=== PATIENT | female | born 1965 | race Caucasian/White ===

== ENCOUNTER → 2018-10-03 13:04 | Outpatient (CLI) | payer BC, SELFPAY ==
[2018-10-03 14:30] LABS: Basophils % 0.7 % (0.1-2.0); Eosinophils # 0.1 K/mm3 (0.0-0.4); Hematocrit 49.1 % (37.0-47.0); Hemoglobin 16.2 g/dL (12.2-16.2); Lymphocytes # 1.4 K/mm3 (0.7-4.5); Lymphocytes % 24.5 % (10-50); Mean Corpuscular Hemoglobin 30.8 pg (27.0-31.2); Mean Corpuscular Volume 93.2 fl (81-99); Mean Platelet Volume 8.1 fl (7.4-10.4); Monocytes # 0.4 K/mm3 (0.1-1.0); Monocytes % 7.1 % (1.7-9.3); Neutrophils # 3.8 K/mm3 (1.8-7.8); Neutrophils % 65.7 % (37.0-80.0); Platelet Count 223 K/mm3 (142-424); Red Blood Count 5.26 M/mm3 (4.20-5.40); White Blood Count 5.8 K/mm3 (4.8-10.8)
[2018-10-03 16:21] LABS: Alanine Aminotransferase 135 U/L (12-78); Albumin Level 3.7 gm/dL (3.4-5.0); Albumin/Globulin Ratio 1.2 (1.1-1.8); Alkaline Phosphatase 94 U/L (46-116); Anion Gap 15.6 mEq/L (5-15); Aspartate Amino Transferase 60 U/L (15-37); Bilirubin,Total 0.5 mg/dL (0.2-1.0); Blood Urea Nitrogen 14 mg/dL (7-18); Calcium 8.7 mg/dL (8.5-10.1); Carbon Dioxide 27 mmol/L (21.0-32.0); Chloride 99 mmol/L (98-107); Cholesterol 333 mg/dL (140-200); Creatinine,Serum 1.01 mg/dL (0.55-1.02); Estimated Glomerular Filt Rate 57 ml/min (>60); Free T4 (Free Thyroxine) 0.99 ng/dl (0.76-1.46); GFR (African American) 69 ML/MIN (>60); Globulin 3.2 gm/dl (1.3-3.2); Glucose 394 mg/dL (74-106); HDL Cholesterol 37 mg/dL (29-89); Potassium 4.6 mmoL/L (3.5-5.1); Sodium 137 mmol/L (136-145); Thyroid Stimulating Hormone 1.85 uIU/ml (0.358-3.740); Total Protein,Serum 6.9 gm/dL (6.4-8.2)
[2018-10-03 16:40] LABS: Triglycerides 485 mg/dL (30-200)
[2018-10-04 20:50] LABS: Vitamin B12 443 pg/mL (232-1245)
[2018-10-04 20:51] LABS: Microalbumin, Urine 150.4 ug/mL (Not Estab.)
== END ==
PROVIDERS: Visit Provider Emergency Medicine
DX: E11.9 Type 2 diabetes mellitus without complications (principal); Z79.84 Long term (current) use of oral hypoglycemic drugs; E55.9 Vitamin D deficiency, unspecified
CPT/HCPCS: 80053; 80061; 82043; 82607; 82652; 83036; 84439; 84443; 85025

== ENCOUNTER → 2018-11-25 15:31 | Outpatient (POV) | payer BC, SELFPAY ==
[2018-11-27 07:17] LABS: Hep A Ab, IgM Negative (Negative); Hepatitis B Core Antibody IgM Negative (Negative); Hepatitis B Surface Antigen Negative (Negative)
[2018-11-27 13:19] LABS: Hepatitis C Antibody <0.1 s/co ratio (0.0-0.9)
[2018-11-28 17:09] LABS: QuantiFERON-TB Gold Plus Negative (Negative)
== END ==
PROVIDERS: Visit Provider Dermatology
DX: L40.0 Psoriasis vulgaris (principal); Z79.899 Other long term (current) drug therapy
CPT/HCPCS: 36415; 80074; 86480

== ENCOUNTER → 2019-02-11 14:15 | Outpatient (CLI) | payer BC, SELFPAY ==
[2019-02-11 14:53] LABS: Basophils # 0.1 K/mm3 (0-0.2); Eosinophils # 0.2 K/mm3 (0.0-0.4); Eosinophils % 2.3 % (0.1-12.0); Hematocrit 57.4 % (37.0-47.0); Hemoglobin 17.7 g/dL (12.2-16.2); Lymphocytes # 2.1 K/mm3 (0.7-4.5); Lymphocytes % 29.9 % (10-50); Mean Corpuscular HGB Conc 30.8 g/dL (31.8-35.4); Mean Corpuscular Volume 97.3 fl (81-99); Mean Platelet Volume 8.7 fl (7.4-10.4); Monocytes # 0.5 K/mm3 (0.1-1.0); Monocytes % 7.3 % (1.7-9.3); Neutrophils # 4.2 K/mm3 (1.8-7.8); Neutrophils % 59.6 % (37.0-80.0); Platelet Count 264 K/mm3 (142-424); Red Cell Distribution Width 13.9 % (11.5-17.5)
[2019-02-11 15:08] LABS: Alanine Aminotransferase 92 U/L (12-78); Albumin Level 3.7 gm/dL (3.4-5.0); Alkaline Phosphatase 84 U/L (46-116); Anion Gap 15.6 mEq/L (5-15); Bilirubin,Total 0.6 mg/dL (0.2-1.0); Blood Urea Nitrogen 12 mg/dL (7-18); Calcium 9.2 mg/dL (8.5-10.1); Carbon Dioxide 27 mmol/L (21.0-32.0); Chloride 100 mmol/L (98-107); Chol/HDL Ratio 7.4 (1-3.5); Cholesterol 295 mg/dL (140-200); Creatinine,Serum 0.71 mg/dL (0.55-1.02); Estimated Glomerular Filt Rate 86 ml/min (>60); GFR (African American) 104 ML/MIN (>60); Globulin 3.7 gm/dl (1.3-3.2); Glucose 149 mg/dL (74-106); HDL Cholesterol 40 mg/dL (29-89); LDL Cholesterol 194 mg/dL (0-130); Sodium 138 mmol/L (136-145); Total Protein,Serum 7.4 gm/dL (6.4-8.2); Triglycerides 305 mg/dL (30-200); VLDL Cholesterol 61 mg/dL (0-40)
[2019-02-11 15:11] LABS: Potassium 4.6 mmoL/L (3.5-5.1)
[2019-02-11 15:12] LABS: Aspartate Amino Transferase 73 U/L (15-37)
[2019-02-11 16:34] LABS: Hemoglobin A1C 7.4 % (0.0-7.0)
== END ==
PROVIDERS: Visit Provider Emergency Medicine
DX: E11.9 Type 2 diabetes mellitus without complications (principal)
CPT/HCPCS: 80053; 80061; 83036; 85025

== ENCOUNTER → 2020-07-18 17:32 | Outpatient (CLI) | payer BC, SELFPAY ==
[2020-07-18 18:05] LABS: Basophils # 0.1 K/mm3 (0-0.2); Basophils % 0.9 % (0.1-2.0); Eosinophils # 0.2 K/mm3 (0.0-0.4); Hematocrit 55.8 % (37.0-47.0); Lymphocytes # 2.7 K/mm3 (0.7-4.5); Mean Corpuscular HGB Conc 33.1 g/dL (31.8-35.4); Mean Corpuscular Hemoglobin 30.9 pg (27.0-31.2); Mean Corpuscular Volume 93.4 fl (81-99); Mean Platelet Volume 8.3 fl (7.4-10.4); Monocytes # 0.5 K/mm3 (0.1-1.0); Monocytes % 6.3 % (1.7-9.3); Neutrophils # 4.1 K/mm3 (1.8-7.8); Neutrophils % 53.8 % (37.0-80.0); Platelet Count 255 K/mm3 (142-424); Red Blood Count 5.97 M/mm3 (4.20-5.40); Red Cell Distribution Width 13.4 % (11.5-17.5); White Blood Count 7.6 K/mm3 (4.8-10.8)
[2020-07-18 18:10] LABS: Hemoglobin 18.6 g/dL (12.2-16.2)
[2020-07-18 18:53] LABS: Alanine Aminotransferase 54 U/L (12-78); Albumin Level 4.6 g/dl (3.5-5.0); Albumin/Globulin Ratio 1.5 (1.1-1.8); Alkaline Phosphatase 85 U/L (38-126); Anion Gap 14.6 mEq/L (5-15); Aspartate Amino Transferase 44 U/L (14-36); Bilirubin,Total 0.7 mg/dl (0.2-1.3); Blood Urea Nitrogen 9 mg/dl (7-17); Carbon Dioxide 26 mmol/L (22.0-30.0); Chloride 102 mmol/L (98-107); Estimated Glomerular Filt Rate 87 ml/min (>60); GFR (African American) 105 ML/MIN (>60); Glucose 156 mg/dl (74-100); HDL Cholesterol 49 mg/dl (40-60); Potassium 4.6 mmoL/L (3.5-5.1); Sodium 138 mmol/L (136-145); Total Protein,Serum 7.6 g/dl (6.3-8.2)
[2020-07-18 19:08] LABS: Free T4 (Free Thyroxine) 1.15 ng/dl (0.78-2.19)
[2020-07-18 19:11] LABS: Direct LDL Cholesterol 238.43 mg/dL (100-129)
[2020-07-18 19:23] LABS: 25-OH Vitamin D, Total < 12.8 ng/mL (30-100); Thyroid Stimulating Hormone 2.51 uIU/mL (0.465-4.68); Triglycerides 437 mg/dl (30-150)
[2020-07-18 19:24] LABS: Cholesterol 345 mg/dl (140-200); Hemoglobin A1C 8.9 % (4.0-6.0)
== END ==
PROVIDERS: Visit Provider Emergency Medicine
DX: E11.9 Type 2 diabetes mellitus without complications (principal); E55.9 Vitamin D deficiency, unspecified; Z79.84 Long term (current) use of oral hypoglycemic drugs
CPT/HCPCS: 80053; 80061; 82306; 83036; 84439; 84443; 85025

== ENCOUNTER → 2022-03-13 13:42 | Outpatient (CLI) | payer BC, SELFPAY ==
[2022-03-13 20:08] LABS: Basophils # 0.1 K/mm3 (0-0.2); Basophils % 1.1 % (0.1-2.0); Eosinophils # 0.2 K/mm3 (0.0-0.4); Eosinophils % 2.3 % (0.1-12.0); Hematocrit 49.5 % (37.0-47.0); Hemoglobin 16.3 g/dL (12.2-16.2); Lymphocytes # 2.6 K/mm3 (0.7-4.5); Lymphocytes % 34.8 % (10-50); Mean Corpuscular HGB Conc 32.9 g/dL (31.8-35.4); Mean Corpuscular Hemoglobin 31.3 pg (27.0-31.2); Mean Corpuscular Volume 95.1 fl (81-99); Mean Platelet Volume 8.5 fl (7.4-10.4); Monocytes # 0.5 K/mm3 (0.1-1.0); Monocytes % 6.5 % (1.7-9.3); Neutrophils # 4.1 K/mm3 (1.8-7.8); Neutrophils % 55.3 % (37.0-80.0); Platelet Count 324 K/mm3 (142-424); Red Blood Count 5.21 M/mm3 (4.20-5.40); Red Cell Distribution Width 13.6 % (11.5-17.5); White Blood Count 7.4 K/mm3 (4.8-10.8)
[2022-03-13 20:14] LABS: Chloride 103 mmol/L (98-107); Potassium 4.3 mmoL/L (3.5-5.1); Sodium 140 mmol/L (136-145)
[2022-03-13 20:17] LABS: Alanine Aminotransferase 38 U/L (12-78); Albumin/Globulin Ratio 1.6 (1.1-1.8); Alkaline Phosphatase 97 U/L (38-126); Anion Gap 15.3 mEq/L (5-15); Aspartate Amino Transferase 34 U/L (14-36); Bilirubin,Total 0.4 mg/dl (0.2-1.3); Blood Urea Nitrogen 12 mg/dl (7-17); Carbon Dioxide 26 mmol/L (22.0-30.0); Cholesterol 288 mg/dl (140-200); Estimated Glomerular Filt Rate 64 ml/min (>60); GFR (African American) 78 ML/MIN (>60); Globulin 2.5 g/dL (1.3-3.2); Total Protein,Serum 6.5 g/dl (6.3-8.2)
[2022-03-13 20:18] LABS: Calcium 9.3 mg/dl (8.4-10.2); Chol/HDL Ratio 7.8 (1-3.5); Glucose 214 mg/dl (74-100); HDL Cholesterol 37 mg/dl (40-60)
[2022-03-13 20:20] LABS: Erythrocyte Sedimentation Rate 29 mm/hr (0-30)
[2022-03-13 20:26] LABS: C-Reactive Protein 11.3 mg/L (0-4)
[2022-03-13 20:31] LABS: Direct LDL Cholesterol 157.35 mg/dL (100-129)
[2022-03-13 20:33] LABS: Triglycerides 813 mg/dl (30-150)
[2022-03-13 20:35] LABS: Free T4 (Free Thyroxine) 1.03 ng/dl (0.78-2.19)
[2022-03-13 20:47] LABS: Hemoglobin A1C 7.7 % (4.0-6.0)
[2022-03-13 20:52] LABS: Thyroid Stimulating Hormone 1.74 uIU/mL (0.465-4.68)
== END ==
PROVIDERS: PCP Emergency Medicine; Visit Provider Emergency Medicine
DX: M54.50 Low back pain, unspecified (principal); E11.9 Type 2 diabetes mellitus without complications; L40.9 Psoriasis, unspecified; E66.9 Obesity, unspecified; Z68.31 Body mass index [BMI] 31.0-31.9, adult; Z72.0 Tobacco use; Z79.84 Long term (current) use of oral hypoglycemic drugs
CPT/HCPCS: 80053; 80061; 83036; 84439; 84443; 85025; 85651; 86140

== ENCOUNTER → 2022-08-15 09:55 | Outpatient (CLI) | payer BC, SELFPAY ==
--- NOTE | 2022-08-15 09:55 | FL_ITS ---
FINAL REPORT CLINICAL HISTORY: abd pain, feels like stuff is going down the wrong way FINDINGS: ESOPHAGRAM HISTORY: Dysphagia. Epigastric pain. Fluoroscopy time: 2 minutes 12 seconds. 14 radiographs were obtained. PROCEDURE: The patient ingested barium. Effervescent crystals were also administered. Spot and overhead films were obtained. FINDINGS: The esophagus is normal. There is no hiatal hernia. There is no gastroesophageal reflux. Peristalsis is normal. A 13 mm barium tablet passes through the esophagus and into the stomach without delay. No aspiration was demonstrated during the exam. IMPRESSION: Normal esophagram. Films reviewed , interpreted and dictated by Dr. Dela Cruz. Transcribed by Bartolome Fernández PA-C. Reviewed, Interpreted and Dictated by Guerrero Dela Cruz III, MD Transcribed by JACQUIE Lynn Authenticated and [facility]
== END ==
PROVIDERS: PCP Emergency Medicine; Visit Provider Emergency Medicine
DX: R10.9 Unspecified abdominal pain (principal)
CPT/HCPCS: 74220

== ENCOUNTER 2023-12-26 15:00 | Outpatient (CLI) | payer BC, SELFPAY ==
[2023-12-26 17:04] LABS: Hemoglobin A1C 6.4 % (4.0-6.0)
[2023-12-26 18:12] LABS: Basophils # 0.1 K/mm3 (0-0.2); Basophils % 0.9 % (0.1-2.0); Eosinophils # 0.2 K/mm3 (0.0-0.4); Eosinophils % 2.3 % (0.1-12.0); Hematocrit 49.6 % (37.0-47.0); Hemoglobin 16.4 g/dL (12.2-16.2); Lymphocytes # 2.2 K/mm3 (0.7-4.5); Lymphocytes % 30.1 % (10-50); Mean Corpuscular Hemoglobin 32.2 pg (27.0-31.2); Mean Corpuscular Volume 97.6 fl (81-99); Mean Platelet Volume 7.8 fl (7.4-10.4); Monocytes # 0.5 K/mm3 (0.1-1.0); Neutrophils # 4.4 K/mm3 (1.8-7.8); Neutrophils % 59.8 % (37.0-80.0); Platelet Count 247 K/mm3 (142-424); Red Blood Count 5.08 M/mm3 (4.20-5.40); Red Cell Distribution Width 13.7 % (11.5-17.5); White Blood Count 7.3 K/mm3 (4.8-10.8)
[2023-12-26 18:37] LABS: Anion Gap 10.1 mEq/L (5-15); Blood Urea Nitrogen 11 mg/dl (7-17); Calcium 9.5 mg/dl (8.4-10.2); Carbon Dioxide 26 mmol/L (22.0-30.0); Chloride 106 mmol/L (98-107); Estimated Glomerular Filt Rate 86 ml/min (>60); GFR (African American) 104 ML/MIN (>60); Glucose 184 mg/dl (74-100); Potassium 4.1 mmoL/L (3.5-5.1); Sodium 138 mmol/L (136-145)
[2023-12-26 18:38] LABS: Alanine Aminotransferase 46 U/L (12-78); Albumin Level 4.1 g/dl (3.5-5.0); Albumin/Globulin Ratio 1.4 (1.1-1.8); Aspartate Amino Transferase 34 U/L (14-36); Bilirubin,Total 0.5 mg/dl (0.2-1.3); Cholesterol 305 mg/dl (140-200); Direct LDL Cholesterol 167.56 mg/dL (100-129); Total Protein,Serum 7.1 g/dl (6.3-8.2); Triglycerides 819 mg/dl (30-150)
[2023-12-26 18:39] LABS: Alkaline Phosphatase 66 U/L (38-126); Chol/HDL Ratio 7.1 (1-3.5); HDL Cholesterol 43 mg/dl (40-60); Thyroid Stimulating Hormone 1.92 uIU/mL (0.465-4.68)
[2024-01-07 04:10] LABS: 1,25 Dihydroxy Vitamin D 43 pg/mL (.); 1,25-Dihydroxy, Vitamin D-2 33 pg/mL (.); 1,25-Dihydroxy, Vitamin D-3 <10 pg/mL (.)
== END 2023-12-26 23:59 | disposition home or self-care (01) ==
LOC: LAB.DROPOF 01-03 13:26
PROVIDERS: PCP Family Medicine; Visit Provider Family Medicine
DX: E11.9 Type 2 diabetes mellitus without complications (principal); E66.3 Overweight; F41.9 Anxiety disorder, unspecified; E55.9 Vitamin D deficiency, unspecified; I25.10 Atherosclerotic heart disease of native coronary artery without angina pectoris
CPT/HCPCS: 80050; 80053; 80061; 82652; 83036; 84443; 85025

== ENCOUNTER 2025-04-16 13:23 | Outpatient (CLI) | payer BC, SELFPAY ==
--- OUTSIDE RECORDS SUMMARY | 2025-04-16 13:26 | XMS_ITS | Clinical Summary ---
Author Organization [facility] Address [address] [place] [address] Care Team Providers Care Stamp Redemption Clerk Name Role Phone Josh Hodge Hugh Primary Care Provider + Allergies Active Allergy Reactions Criticality Noted Date Comments Egg Protein-Containing Drug Products Nausea And Vomiting 08/23/2020 Sitagliptin Angioedema 06/10/2023 Lisinopril Cough 06/10/2023 Medications Jardiance 25 MG tablet Take 1 tablet by mouth Daily. 1 Active Cholecalciferol 25 MCG (1000 UT) tablet Take 1 tablet by mouth Daily. Active Semaglutide,0.2 5 or 0.5MG/DOS, (Ozempic, 0.25 or 0.5 MG/DOSE,) 2 MG/1.5ML solution pen-injector Inject under the skin into the appropriate area as directed 1 (One) Time Per Week. Unknown dose; gets it through clinic Active aspirin 81 MG EC tablet Take 1 tablet by mouth Daily. 90 tablet 3 4 Active atorvastatin (LIPITOR) 80 MG tablet Take 1 tablet by mouth Every Night. 90 tablet 3 09/08/2023 3:19 PM EDT 4 Active vitamin D (ERGOCALCIFEROL ) 1.25 MG (28454 UT) capsule capsule Take 1 capsule by mouth Every 7 (Seven) Days. 4 Active carvedilol (COREG) 3.125 MG tablet Take 1 tablet by mouth 2 (Two) Times a Day With Meals. 180 tablet 3 02/07/2025 4:24 PM EDT 5 Active losartan (COZAAR) 25 MG tablet Take 1 tablet by mouth Daily. 90 tablet 3 02/07/2025 4:24 PM EDT 5 Active nitroglycerin (NITROSTAT) 0.[address] 1 tablet under the tongue every 5 minutes As Needed for Chest Pain (Systolic BP>100). Take no more than 3 doses in 15 minutes. 25 tablet 12 02/07/2025 4:24 PM EDT 5 Active ticagrelor (Brilinta) 90 MG tablet tablet Take 1 tablet by mouth 2 (Two) Times a Day. 180 tablet 2 02/07/2025 4:24 PM EDT 5 Active Active Problems Problem Noted Date Diagnosed Date STEMI (ST elevation myocardial infarction) 06/10 Type 2 diabetes mellitus 06/10/2023 Simple chronic bronchitis 06/10/2023 Erythrocytosis 08/23/2020 Encounters Date Type Department Care Team Description 01/28/2025 Refill [facility] [address] [place] [address] [address] [place] [address] Louis Hopkins MD Med Refill from Last 3 Months Family History Medical History Relation Name Comments Hypertension Father Dad Breast cancer Maternal Grandmother Lung cancer Maternal Uncle No Known Problems Mother Heart attack Sister Fernanda Relation Name Status Comments Father Dad Maternal Grandmother Maternal Uncle Mother Sister Fernanda Social History Tobacco Use Types Packs/Day Years Used Date Smoking Tobacco: Every Day Cigarettes 1 50 Started: 04/29/1975 Passive Smoke Exposure: Current Tobacco Cessation:Ready to Q uit: Not Asked; Counseling Given: Not Answered Alcohol Use Standard Drinks/Week Comments Never 0 (1 standard drink = 0.6 oz pur e alcohol) AUDIT-C Answer Date Recorded Q1: How often do you have a drink containing alcohol? Never 06/10/2023 Q2: How many drinks containi ng alcohol do you have on a typical day when you are drinking? Patient does not drink Q3: How often do you have si x or more drinks on one occasion? Never 06/10/2023 PHQ-2 Answer Date Recorded Retired Total Score 0 08/23/2020 Abuse Screen Answer Date Recorded Feels Unsafe at Home or Work/School no 06/10/2023 Feels Threatened by Someone no 05/30 Does Anyone Try to Keep You From Having Contact with Others or Doing Things Outside Your Home? no 06/10/2023 Physical Signs of Abuse Present no 06/10/2023 Housing Stability Answer Date Recorded Current Living Arrangements home 05/30 Potentially Unsafe Housing Conditions none 06/11/2023 Disabilities Answer Date Recorded Difficulty Concentrating, Remembering or Making Decisions no 06/10/2023 Difficulty Managing Errands Independently no 06/10/2023 Education Answer Date Recorded Help with school or training? Not on file Preferred Language Ethiopian 06/11/2023 Comments Unknown Sex and Gender Information Value Date Recorded Sex Assigned at Not on file Legal Sex Female 1:20 PM EDT Gender Identity Not on file Sexual Orientation Not on file Last Filed Vital Signs Vital Sign Reading Time Taken Comments Blood Pressure 120/70 04/16/2024 3:20 PM EST Pulse 55 04/16/2024 3:20 PM EST Temperature 36.8 C (98.3 F) 06/12/2023 7:58 AM EST Respiratory Rate 16 06/12/2023 10:00 AM EST Oxygen Saturation 92% 04/16/2024 3:20 PM EST Inhaled Oxygen Concentration - - Weight 74.5 kg (164 lb 3.2 oz) 04/16/2024 3:20 P M EST Height 162.6 cm (5' 4.02 ) 04/16/2024 3:20 PM ES T Body Mass Index 28.17 04/16/2024 3:20 PM EST Plan of Treatment Upcoming Encounters Date Type Department Care Team (Late st Contact Info) Description 05/06/2025 3:45 PM EST Office Visit [facility] [address] [place] [address] [address] [place] [address] Louis Hopkins MD [address] [place] [address] Health Maintenance Due Date Last Done Comments Annual Gynecologic Pelvic and Breast Exam 1964 DIABETIC EYE EXAM 1974 DIABETIC FOOT EXAM 1974 URINE MICROALBUMIN-CREATININE RATIO (uACR) 1974 Pneumococcal Vaccine 50+ (1 of 2 - PCV) 1983 TDAP/TD VACCINES (1 - Tdap) 1983 PAP SMEAR 1985 MAMMOGRAM 2004 COLOGUARD 2009 COLON CANCER SCREENING 5 YEAR SIGMOIDOSCOPY 2009 COLONOSCOPY [address] CANCER SCREENING 2009 [address] COLONOGRAPHY 2009 FECAL OCCULT BLOOD TEST 2009 FIT Testing (1 year) 2009 LUNG CANCER SCREENING 2014 ZOSTER VACCINE (1 of 2) 2014 ANNUAL PHYSICAL 08/23/2020 HEPATITIS C SCREENING 08/23/2020 HEMOGLOBIN A1C 12/09/2023 06/10/2023 LIPID PANEL 06/10/2024 06/10/2023 INFLUENZA VACCINE 11/27/2024 Medical Devices Implanted Type Area Scientific Investigator Device Identifier Shelf Expiration Date Model / Serial / Lot Stnt [employer] Rx Xience/Skypoi nt Rapdxng 4x23mm - [id number] Implanted:Qty : 1 on 06/10/2023 by Louis Hopkins MD at [facility] N/A: Coronary REN VASCULAR [id number] / / [id number] Stnt [employer] Rx Xience/Skypoi nt Rapdxng 3.5x18mm - [id number] Implanted:Qty : 1 on 06/10/2023 by Louis Hopkins MD at [facility] N/A: Coronary REN VASCULAR [id number] / / [id number] Procedures Procedure Name Priority Date/Time Associated Diagnosis Comments HEMOGLOBIN A1C STAT 06/10/2023 8:50 AM EST LIPID PANEL STAT 06/10/2023 8:50 AM EST from Last 3 Months or Most Recently Relevant to Health Maintenance Results * (ABNORMAL) Hemoglobin A1c (06/10/2023 8:50 AM EST) Hemoglobin A1C 7.20(H) 4.80 - 5.60 % 06/10/2023 9:25 AM EST [facility] Blood Line / Unknown 06/10/2023 8: 50 AM EST 06/10/2023 9:00 AM EST [facility] - 06/10/2023 9:25 AM EST Hemoglobin A1C Ranges: Increased Risk for Diabetes 5.7% to 6.4% Diabetes >= 6.5% Diabetic Goal < 7.0% Louis Hopkins MD LAB BLOOD ORDERABLES Final Res ult [facility]
[address] [place] [address], * (ABNORMAL) Lipid Panel (06/10/2023 8:50 AM EST) Total Cholesterol 168 0 - 200 mg/dL 06/10/2023 9:29 AM EST [facility] Triglycerides 268(H) 0 - 150 mg/dL 06/10/2023 9:29 AM EST [facility] HDL Cholesterol 45 40 - 60 mg/dL 06/10/2023 9:29 AM EST [facility] LDL Cholesterol 79 0 - 100 mg/dL 06/10/2023 9:29 AM EST [facility] VLDL Cholesterol 44(H) 5 - 40 mg/dL 06/10/2023 9:29 AM EST [facility] LDL/HDL Ratio 1.54 06/10/2023 9:29 AM EST [facility] Blood Line / Unknown 06/10/2023 8: 50 AM EST 06/10/2023 9:00 AM EST [facility] - 06/10/2023 9:29 AM EST Cholesterol Reference Ranges (U.S. Department of Health and Human Services ATP III Classifications) Desirable <200 mg/dL Borderline High 200-239 mg/dL High Risk >240 mg/dL Triglyceride Reference Ranges (U.S. Department of Health and Human Services ATP III Classifications) Normal <150 mg/dL Borderline High 150-199 mg/dL High 200-499 mg/dL Very High >500 mg/dL HDL Reference Ranges (U.S. Department of Health and Human Services ATP III Classifications) Low <40 mg/dl (major risk factor for CHD) High >60 mg/dl ('negative' risk factor for CHD) LDL Reference Ranges (U.S. Department of Health and Human Services ATP III Classifications) Optimal <100 mg/dL Near Optimal 100-129 mg/dL Borderline High 130-159 mg/dL High 160-189 mg/dL Very High >189 mg/dL Louis Hopkins MD LAB BLOOD ORDERABLES Final Res ult [facility]
[address] [place] [address], [place] [phone] from Last 3 Months or Most Recently Relevant to Health Maintenance Insurance PPO Advance Directives * CPR (Attempt to Resuscitate) (Latest Code Status on File) Date Activated Date Inactivated Comments 06/10/2023 10:34 AM 06/12/2023 3:28 PM Question Answer Comments Code Status (Patient has no pulse and is not breathing): CPR (Attempt to Resuscitate) Medical Interventions (Patie nt has pulse or is breathing): Full Support Level Of Support Discussed With: Patient Care Teams Stamp Redemption Clerk Relationship Specialty Start Date End Date Josh Hodge DO [address] [place] [id number] PCP - General Internal Medicine 06/27/23
--- OUTSIDE RECORDS SUMMARY | 2025-04-16 13:26 | XMS_ITS | Clinical Summary ---
Author Organization [facility] Address [address] [place], [place] [address] Care Team Providers Care Car Cooper Name Role Phone Addison Torrez MD Primary Care Provider [phone] Addison Torrez MD Unavailable [phone] Allergies No known active allergies Active Problems Problem Noted Date Diagnosed Date History of cancer of vulva 04/01/2017 Family History Medical History Relation Comments Alcohol abuse Father Hypertension Father Hypertension Sister Hepatitis Son Relation Status Comments Father Sister Son Hep C Social History Tobacco Use Types Packs/Day Years Used Date Smoking Tobacco: Former Cigarettes 1 35 Smokeless Tobacco: Never Comments:status as of Alcohol Use Standard Drinks/Week Comments Yes 0 (1 standard drink = 0.6 oz pur e alcohol) Comments Unknown Sex and Gender Information Value Date Recorded Sex Assigned at Not on file Legal Sex Female 4:36 PM EST Gender Identity Not on file Sexual Orientation Not on file Plan of Treatment Health Maintenance Due Date Last Done Comments Breast Cancer Screening 1964 CT Colonography 1964 Colonoscopy 1964 Colorectal Cancer Screening 1964 FIT-DNA 1964 FIT 1964 FOBT 1964 Hepatitis C Screening 1964 Sigmoidoscopy 1964 Tdap/Td Vaccine >11 yo (1 - Tdap) 1983 Cervical Cancer Screening 1985 Pneumococcal Vaccines >50 yo (1 of 1 - PCV) 2014 Shingles (Shingrix) (1 of 2) 2014 Annual SDOH Screening 04/29/2024 Influenza Vaccine (#1) 2024 RSV 50+ and (1 - 1 -dose 75+ series) 2039 Haemophilus Influenzae Type B (Hib) Vaccine Aged Out No longer eligible b ased on patient's age to complete this topic Hepatitis A (HepA) Vaccine Aged Out N o longer eligible based on patient's age to complete this topic Hepatitis B (HepB) Vaccine Aged Out N o longer eligible based on patient's age to complete this topic Meningococcal ACWY Aged Out No longer eligible based on patient's age to complete this topic Polio (IPV) Aged Out No longer eligi ble based on patient's age to complete this topic Rotavirus (RV) Vaccine Aged Out No lo nger eligible based on patient's age to complete this topic Insurance Care Teams Car Cooper Relationship Specialty Start Date End Date Addison Torrez MD PCP - General Internal Medicine 02/25/17 Addison Torrez MD Referring Physician Internal Medicine 02/25/17
--- OUTSIDE RECORDS SUMMARY | 2025-04-16 13:26 | XMS_ITS | Clinical Summary ---
Author Organization [facility] Address [address] [place] [address] Care Team Providers Care Wire Temperer Name Role Phone Unavailable Primary Care Provider Unavailabl e Social History Tobacco Use Types Packs/Day Years Used Date Smoking Tobacco: Never Assessed Comments Unknown Sex and Gender Information Value Date Recorded Sex Assigned at Not on file Legal Sex Female 8:02 PM EDT Gender Identity Not on file Sexual Orientation Not on file Plan of Treatment Health Maintenance Due Date Last Done Comments [facility]-Depression Screening 1964 [facility]-Infant/Child/Adol SDOH Screenings 1964 [facility]- SDOH Screenings 1982 [facility]-Adult SDOH Screenings 1982 [facility]-DTaP,Tdap,and Td Vaccine s (1 - Tdap) 1983 [facility]-Pap Smear 1985 [facility]-Cervical Cancer Screening 1994 [facility]-HPV/Cotest 1994 CT Colonography 2009 Colonoscopy 2009 FIT-DNA 2009 FIT 2009 FOBT 2009 Sigmoidoscopy 2009 [facility]-Colorectal Cancer Screening 2009 [facility]-Pneumococcal Vaccine: 50 + Years (1 of 1 - PCV) 2014 [facility]-Zoster Vaccines (1 of 2) 2014 [id number] Vaccine (1 - 20 25-26 season) 2024 [facility]-Influenza Vaccine (#1) 2024 [facility]-RSV Vaccine: 60+ Years o r (1 - 1-dose 75+ series) 2039 HPV Vaccines (No Doses Required) Completed [facility]-HIB Vaccines Aged Out No longer e ligible based on patient's age to complete this topic [facility]-Hepatitis A Vaccines Aged Out No longer eligible based on patient's age to complete this topic [facility]-IPV Vaccines Aged Out No longer e ligible based on patient's age to complete this topic [facility]-Rotavirus Vaccines Aged Out No lo nger eligible based on patient's age to complete this topic
[2025-04-16 13:52] LABS: Hematocrit 49.6 % (37.0-47.0); Hemoglobin 16.5 g/dL (12.2-16.2); Immature Granulocytes % 0.3 %; Mean Corpuscular HGB Conc 33.3 g/dL (31.8-35.4); Mean Corpuscular Hemoglobin 30.7 pg (27.0-31.2); Mean Corpuscular Volume 92.2 fl (81-99); Nucleated Red Blood Cells % 0 %; Platelet Count 202 K/mm3 (142-424); Red Blood Count 5.38 M/mm3 (4.20-5.40); Red Cell Distribution Width-SD 43.0 fL; White Blood Count 6.3 K/mm3 (4.8-10.8)
[2025-04-16 14:34] LABS: Albumin Level 4.4 g/dl (3.5-5.0); Chloride 104 mmol/L (98-107); Sodium 139 mmol/L (136-145)
[2025-04-16 14:35] LABS: Potassium 4.1 mmoL/L (3.5-5.1)
[2025-04-16 14:37] LABS: Alanine Aminotransferase 30 U/L (12-78); Albumin/Globulin Ratio 1.8 (1.1-1.8); Alkaline Phosphatase 66 U/L (38-126); Anion Gap 10.1 mEq/L (5-15); Aspartate Amino Transferase 31 U/L (14-36); Bilirubin,Total 0.6 mg/dl (0.2-1.3); Blood Urea Nitrogen 12 mg/dl (7-17); Carbon Dioxide 29 mmol/L (22.0-30.0); Creatinine,Serum 0.70 mg/dl (0.52-1.04); Estimated Glomerular Filt Rate 85 ml/min (>60); GFR (African American) 103 ML/MIN (>60); Globulin 2.5 g/dL (1.3-3.2); Total Protein,Serum 6.9 g/dl (6.3-8.2)
[2025-04-16 14:38] LABS: Calcium 9.7 mg/dl (8.4-10.2); Cholesterol 248 mg/dl (140-200); Glucose 164 mg/dl (74-100); HDL Cholesterol 52 mg/dl (40-60)
[2025-04-16 14:41] LABS: Triglycerides 439 mg/dl (30-150)
[2025-04-16 14:54] LABS: Free T4 (Free Thyroxine) 0.96 ng/dl (0.78-2.19)
[2025-04-16 15:10] LABS: Thyroid Stimulating Hormone 1.45 uIU/mL (0.465-4.68)
[2025-04-16 15:37] LABS: Hemoglobin A1C 6.0 % (4.0-6.0)
[2025-04-16 17:43] LABS: 25-OH Vitamin D, Total 17.3 ng/mL (30-100)
== END 2025-04-16 23:59 | disposition home or self-care (01) ==
LOC: LAB 13:24
PROVIDERS: PCP Family Medicine; Visit Provider Family Medicine
DX: I25.10 Atherosclerotic heart disease of native coronary artery without angina pectoris (principal); E78.5 Hyperlipidemia, unspecified; E55.9 Vitamin D deficiency, unspecified; J45.909 Unspecified asthma, uncomplicated; E11.9 Type 2 diabetes mellitus without complications; Z72.0 Tobacco use; R00.2 Palpitations
CPT/HCPCS: 80053; 80061; 82306; 83036; 84439; 84443; 85025